=== PATIENT | male | born 1995 ===

== ENCOUNTER 2018-08-28 10:31 | Emergency (ER) | payer SELFPAY ==
[2018-08-28] MEDS ORDERED: Ibuprofen 800 MG TAB ONE (11:36)
== END 2018-08-28 11:46 | disposition home or self-care (01) ==
LOC: ERS 10:31
DX: S39.011A Strain of muscle, fascia and tendon of abdomen, initial encounter (principal); X58.XXXA Exposure to other specified factors, initial encounter; Y93.66 Activity, soccer
CPT/HCPCS: 99283